=== PATIENT | male | born 1985 | race Caucasian/White ===

== ENCOUNTER 2022-01-09 01:48 | Emergency (ER) | payer MEDICAID ==
[~2022-01-09] VITALS: Ht 185.4 cm; Wt 78.5 kg
--- NOTE | 2022-01-09 05:28 | NUR ---
PATIENT PUT OF UNIT FOR CT SCAN VIA [facility]URNY.
[2022-01-09] MEDS ORDERED: KETOROLAC TROMETHAMINE 60 MG INJ IM ONE ×2 (05:45→05:57)
--- NOTE | 2022-01-09 05:46 | NUR ---
PATIENT BACK FROM CT SCAN WITH NO DISTRESS NOTED.
[2022-01-09] MEDS ORDERED: IBUP-1955 PO (05:55)
--- NOTE | 2022-01-09 09:10 | NUR ---
Patient discharged to home in stable condition. Written and verbal after care instructions given. Patient verbalizes understanding of instructions. Stressed follow up or return to ER for worsening s/s.
--- NOTE | 2022-01-09 09:13 | NUR ---
Social work consult was requested for a patient in the emergency room for homeless and substance abuse resources. Patient is 36-year-old black male. Patient appears alert and oriented X4. Patient appears lethargic. Patient presents with depressed mood and congruent affect. Patient states he does not have a primary contact. Patient states he has been homeless for 4 months in [place]. KARLA provided the patient resources and gave him the information for [facility] [address] [place] [address] ([phone]) and [facility] [address] [facility] [address] ([phone]). KARLA gave resources for [facility] [address] [facility] [address]. Resources were placed in the chart. Homeless waiver was signed and given to the patient and a copy was placed in the chart. Patient states that he is unemployed. Patient states that he has a history of substance. There is no toxicology report. KARLA provided the patient resources and referrals for substance use from [facility] [address] [facility] [address] ([phone]), [facility] [address] [facility] [address] ([phone]), and [facility] [address] [place] [id number] ([phone]). Patient appeared appreciative of resources. Patient appears ambivalent about treatment. Resources were placed in the chart. Patient states he has a history of schizophrenia. KARLA provided the patient with the mental health walk in resource at [facility] [address] [place] [address] ([phone]). Patient denies visual or auditory hallucinations and delusions. Patient denies suicidal or homicidal ideation. Patient states he will follow-up with making his own arrangements for a living arrangement using the resources provided. KARLA provided the patient with a TAP card for discharge.
[2022-01-09 09:29] VITALS: BP 139/90
== END 2022-01-09 09:10 | disposition home or self-care (01) ==
LOC: ER 02:17
DX: S00.03XA Contusion of scalp, initial encounter (principal); S40.812A Abrasion of left upper arm, initial encounter; S05.12XA Contusion of eyeball and orbital tissues, left eye, initial encounter; Y09 Assault by unspecified means; Y92.89 Other specified places as the place of occurrence of the external cause; F20.9 Schizophrenia, unspecified; J45.909 Unspecified asthma, uncomplicated; Z59.00 Homelessness unspecified; F17.200 Nicotine dependence, unspecified, uncomplicated
CPT/HCPCS: 99285; 70450; 70486; 96372; J1885; A4663